=== PATIENT | male | born 1965 | race Caucasian/White ===

== ENCOUNTER 2023-08-18 12:37 | Outpatient (CLI) | payer MEDICAID | END 2023-08-18 12:38 | disposition critical access hospital (66) | LOC: EMS 12:37 | DX: R06.02 Shortness of breath (principal); R09.89 Other specified symptoms and signs involving the circulatory and respiratory systems; R00.0 Tachycardia, unspecified | CPT/HCPCS: A0425; A0429 ==

== ENCOUNTER 2023-08-18 12:53 | Emergency (ER) | payer MEDICAID, OTHER ==
[2023-08-18] MEDS ORDERED: SODIUM CHLORIDE 0.9% 1,000 ML IV STA (13:01)
[2023-08-18 13:24] LABS: BASOPHILS # (AUTO) 0.1 10^3/uL (0.0-0.1); BASOPHILS % (AUTO) 0.4 %; EOSINOPHILS # (AUTO) 0.1 10^3/uL (0.0-0.7); EOSINOPHILS % (AUTO) 0.4 %; HCT - HEMATOCRIT 48.7 % (42.0-52.0); LYMPHOCYTES # (AUTO) 1.6 10^3/uL (1.5-3.5); LYMPHOCYTES % (AUTO) 13.4 %; MEAN CORPUSCULAR HEMOGLOBIN 27.2 pg (27.0-31.0); MEAN CORPUSCULAR HGB CONC 32.9 g/dL (32.0-36.0); MEAN CORPUSCULAR VOLUME 82.8 fL (80.0-94.0); MEAN PLATELET VOLUME 9.3 fL (7.4-11.4); MONOCYTES # (AUTO) 0.6 10^3/uL (0.0-1.0); MONOCYTES % (AUTO) 4.7 %; NEUTROPHILS # (AUTO) 9.8 10^3/uL (1.5-6.6); NEUTROPHILS % (AUTO) 80.9 %; PLT - PLATELET COUNT 264 10^3/uL (130-450); RED BLOOD COUNT 5.88 10^6/uL (4.70-6.10); WHITE BLOOD COUNT 12.2 x10^3/uL (4.8-10.8)
[2023-08-18 13:44] LABS: ALBUMIN 4.1 g/dL (3.2-5.5); ALBUMIN/GLOBULIN RATIO 1.2 (1.0-2.2); ALKALINE PHOSPHATASE 78 IU/L (42-121); ALT ALANINE AMINOTRANSFERASE 22 IU/L (10-60); AST ASPARTATE AMINOTRANSFERASE 18 IU/L (10-42); BILIRUBIN,TOTAL 0.7 mg/dL (0.2-1.0); BUN - BLOOD UREA NITROGEN 19 mg/dL (6-20); CALCIUM 9.4 mg/dL (8.5-10.3); CARBON DIOXIDE - CO2 26 mmol/L (21-32); CHLORIDE 102 mmol/L (101-111); CREATININE 1.2 mg/dL (0.6-1.3); GFR - MDRD 62 (>89); GLUCOSE 153 mg/dL (74-104); POTASSIUM 4.2 mmol/L (3.5-4.5); SODIUM 138 mmol/L (135-145); TOTAL PROTEIN 7.5 g/dL (6.4-8.9)
[2023-08-18 13:46] LABS: LIPASE < 10 U/L (11-82)
--- NOTE | 2023-08-18 14:00 | XRAY Report ---
PROCEDURE: Chest 1 View X-Ray INDICATIONS: chest pain/dyspnea TECHNIQUE: One view of the chest was acquired. COMPARISON: None FINDINGS: Surgical changes and devices: None. Lungs and pleura: No pleural effusions or pneumothorax. Lungs are clear. Low lung volumes accentu ate pulmonary interstitium and heart size. Mediastinum: Mediastinal contours appear normal. Heart size is normal. Bones and chest wall: No suspicious bony lesions. Overlying soft tissues appear unremarkable. IMPRESSION: No acute cardiopulmonary findings Reviewed by: Gerald Barillas MD on 08/18/2023 12:59 PM AKDT Approved by: Gerald Barillas MD on 08/18/2023 12:59 PM AKDT Station ID: [id number]
[2023-08-18] MEDS ORDERED: HYDROmorphone 0.5 MG/0.5 ML SYRINGE IVP STA (14:10)
[2023-08-18 14:13] LABS: B. PARAPERTUSSIS- RESP PCR PAN NOT DETECTED; B. PERTUSSIS- RESP PCR PANEL NOT DETECTED; C. PNEUMONIAE- RESP PCR PANEL NOT DETECTED; CORONAVIRUS 229E-RESP PCR NOT DETECTED; CORONAVIRUS HKU1-RESP PCR NOT DETECTED; CORONAVIRUS NL63-RESP PCR NOT DETECTED; CORONAVIRUS OC43-RESP PCR NOT DETECTED; HUMAN METAPNEUMOVIRUS NOT DETECTED; INFLUENZA A- RESP PCR PANEL NOT DETECTED; INFLUENZA B - RESP PCR PANEL NOT DETECTED; M. PNEUMONIAE- RESP PCR PANEL NOT DETECTED; PARAINFLUENZA VIRUS 1 NOT DETECTED; PARAINFLUENZA VIRUS 2 NOT DETECTED; PARAINFLUENZA VIRUS 3 NOT DETECTED; PARAINFLUENZA VIRUS 4 NOT DETECTED; RHINOVIRUS/ENTEROVIRUS NOT DETECTED; RSV- RESP PCR PANEL NOT DETECTED; SARS-CoV-2 -RESP PCR PANEL NOT DETECTED
[2023-08-18] MEDS ORDERED: ASPIRIN CHEW 81 MG TABLET PO STA (16:45)
[2023-08-18] MEDS ORDERED: ONDANSETRON 4 MG/2 ML VIAL IVP STA (16:47)
[2023-08-18] MEDS ORDERED: NITROGLYCERIN 2% PASTE TOP STA (16:47)
[2023-08-18] MEDS ORDERED: METOPROLOL 5 MG/5 ML VIAL IVP STA (16:47)
[2023-08-18] MEDS ORDERED: HEPARIN 25000UNITS/500ML (D5W) 25,000 UNIT/500 ML BAG IV SCH (17:00)
[2023-08-18] MEDS ORDERED: HEPARIN 5,000 UNIT/ML VIAL IVP ONE (17:00)
--- NOTE | 2023-08-18 17:04 | ED Physician Documentation ---
PD HPI DYSPNEA - Stated complaint Stated Complaint: SOA - Chief complaint Chief Complaint: Resp - History obtained from History obtained from: Patient, EMS - Additional information Additional information: Patient comes to the emergency department chief complaint of dyspnea and an intermittent "ball" sensation in the middle of his chest. He states that he has been having episodes of shortness of breath on and off for the last 2 weeks. He states he felt fairly fine before that was not having any chest symptoms at all. He noticed that when he walked uphill after getting the mail, he had to stop in the middle of walking up to catch his breath. began to notice that he states that the symptoms would last for a few minutes and then resolved. He would feel fine in between. The patient states that he began to also notice a sensation that there was something inside of his chest taking up space. He denies any actual chest pain at those times. The patient states has had a little bit of a cough. He states that the symptoms have gotten somewhat worse to the point that today, he was worried enough to call EMS. He states that he has not been to a doctor in 40 years and is not aware of any medical problems. He is not a smoker. He does not take any medications. The patient states that he has not had any recent swelling in his legs, though he used to intermittently noticed that his right leg would swell. No history of any pulmonary or cardiac diagnoses. No other complaints at this time. Medics report that when they picked the patient up, his oxygen saturation was 94 to 96% on room air. He has been hemodynamically stable en route. PD PAST MEDICAL HISTORY - Past Medical History Past Medical History: No Cardiovascular: None Respiratory: None Neuro: None Endocrine/Autoimmune: None GI: None : None HEENT: None Psych: None Musculoskeletal: None Derm: None - Past Surgical History Past Surgical History: No - Present Medications Home Medications: Ambulatory Orders Medication Instructions Recorded Confirmed Aspirin EC [Ecotrin] 325 mg PO DAILY 08/18/23 08/18/23 - Allergies Allergies/Adverse Reactions: Allergies Allergy/AdvReac Type Severity Reaction Status Date / Time No Known Drug Allergies Allergy Verified 08/18/23 13:22 - Social History Does the pt smoke?: No Smoking Status: Never smoker Does the pt drink ETOH?: No Does the pt have substance abuse?: No - Immunizations Immunizations are current?: No Immunizations: Other immun not current PD ED PE NORMAL - Vitals Vital signs reviewed: Yes - General General: Alert and oriented X 3, No acute distress, Well developed/nourished - HEENT HEENT: Atraumatic, PERRL, EOMI, Moist mucous membranes - Neck Neck: Supple, no meningeal sign - Cardiac Cardiac: RRR, No murmur, Strong equal pulses - Respiratory Respiratory: No respiratory distress, Clear bilaterally - Abdomen Abdomen: Soft, Non tender, Non distended - Derm Derm: Normal color, Warm and dry, No rash - Extremities Extremities: No deformity, No edema, No calf tenderness / cord - Neuro Neuro: Alert and oriented X 3 - Psych Psych: Normal mood, Normal affect Results - Vitals Vitals: Oxygen O2 Source Nasal cannula Oxygen Flow Rate 10 - EKG (time done) 1421 EKG releavant findings:: EKG personally interpreted by author of this note. Relevant findings are: Rate: Rate (enter#) (90) Rhythm: NSR [place]: Normal Intervals: Normal AL QRS: Normal Ischemia: Normal ST segments Compare to prior EKG: Old EKG unavailable Computer interpretation: Agree with computer 1536 EKG releavant findings:: EKG personally interpreted by author of this note. Relevant findings are: Rate: Rate (enter#) (81) Rhythm: NSR [place]: RAD Intervals: Normal AL QRS: Normal Ischemia: Normal ST segments, Non specific changes Compare to prior EKG: Unchanged from prior EKG Computer interpretation: Agree with computer - Labs Labs: Laboratory Tests 08/18/23 08/18/23 08/18/23 13:15 13:20 13:20 WBC 12.2 H RBC 5.88 Hgb 16.0 Hct 48.7 MCV 82.8 MCH 27.2 MCHC 32.9 RDW 13.0 Plt Count 264 MPV 9.3 Neut # (Auto) 9.8 H Lymph # (Auto) 1.6 [place] # (Auto) 0.6 Eos # (Auto) 0.1 Baso # (Auto) 0.1 Absolute Nucleated RBC 0.00 Nucleated RBC % 0.0 Sodium 138 Potassium 4.2 Chloride 102 Carbon Dioxide 26 Anion Gap 10.0 BUN 19 Creatinine 1.2 Estimated GFR (MDRD) 62 L Glucose 153 H POC Whole Bld Glucose Lactic Acid Calcium 9.4 Total Bilirubin 0.7 AST 18 ALT 22 Alkaline Phosphatase 78 Troponin I High Sens B-Natriuretic Peptide Total Protein 7.5 Albumin 4.1 Globulin 3.4 Albumin/Globulin Ratio 1.2 Lipase < 10 L Nasal Adenovirus (PCR) NOT DETECTED Nasal B. parapertussis DNA (PCR) NOT DETECTED Nasal Coronavir 229E PCR NOT DETECTED Nasal Coronavir HKU1 PCR NOT DETECTED Nasal Coronavir NL63 PCR NOT DETECTED Nasal Coronavir OC43 PCR NOT DETECTED Nasal Enterovir/Rhinovir PCR NOT DETECTED Nasal Influenza B PCR NOT DETECTED Nasal Influenza A PCR NOT DETECTED Nasal Parainfluen 1 PCR NOT DETECTED Nasal Parainfluen 2 PCR NOT DETECTED Nasal Parainfluen 3 PCR NOT DETECTED Nasal Parainfluen 4 PCR NOT DETECTED Nasal RSV (PCR) NOT DETECTED Nasal B.pertussis DNA PCR NOT DETECTED Nasal C.pneumoniae (PCR) NOT DETECTED Dagoberto Human Metapneumo PCR NOT DETECTED Nasal M.pneumoniae (PCR) NOT DETECTED Nasal SARS-CoV-2 (PCR) NOT DETECTED 08/18/23 08/18/23 08/18/23 13:20 15:36 15:50 WBC RBC Hgb Hct MCV MCH MCHC RDW Plt Count MPV Neut # (Auto) Lymph # (Auto) [place] # (Auto) Eos # (Auto) Baso # (Auto) Absolute Nucleated RBC Nucleated RBC % Sodium Potassium Chloride Carbon Dioxide Anion Gap BUN Creatinine Estimated GFR (MDRD) Glucose POC Whole Bld Glucose 114 H Lactic Acid Calcium Total Bilirubin AST ALT Alkaline Phosphatase Troponin I High Sens 227.2 H* B-Natriuretic Peptide 615 H Total Protein Albumin Globulin Albumin/Globulin Ratio Lipase Nasal Adenovirus (PCR) Nasal B. parapertussis DNA (PCR) Nasal Coronavir 229E PCR Nasal Coronavir HKU1 PCR Nasal Coronavir NL63 PCR Nasal Coronavir OC43 PCR Nasal Enterovir/Rhinovir PCR Nasal Influenza B PCR Nasal Influenza A PCR Nasal Parainfluen 1 PCR Nasal Parainfluen 2 PCR Nasal Parainfluen 3 PCR Nasal Parainfluen 4 PCR Nasal RSV (PCR) Nasal B.pertussis DNA PCR Nasal C.pneumoniae (PCR) Dagoberto Human Metapneumo PCR Nasal M.pneumoniae (PCR) Nasal SARS-CoV-2 (PCR) 08/18/23 18:58 WBC RBC Hgb Hct MCV MCH MCHC RDW Plt Count MPV Neut # (Auto) Lymph # (Auto) [place] # (Auto) Eos # (Auto) Baso # (Auto) Absolute Nucleated RBC Nucleated RBC % Sodium Potassium Chloride Carbon Dioxide Anion Gap BUN Creatinine Estimated GFR (MDRD) Glucose POC Whole Bld Glucose Lactic Acid 2.8 H Calcium Total Bilirubin AST ALT Alkaline Phosphatase Troponin I High Sens B-Natriuretic Peptide Total Protein Albumin Globulin Albumin/Globulin Ratio Lipase Nasal Adenovirus (PCR) Nasal B. parapertussis DNA (PCR) Nasal Coronavir 229E PCR Nasal Coronavir HKU1 PCR Nasal Coronavir NL63 PCR Nasal Coronavir OC43 PCR Nasal Enterovir/Rhinovir PCR Nasal Influenza B PCR Nasal Influenza A PCR Nasal Parainfluen 1 PCR Nasal Parainfluen 2 PCR Nasal Parainfluen 3 PCR Nasal Parainfluen 4 PCR Nasal RSV (PCR) Nasal B.pertussis DNA PCR Nasal C.pneumoniae (PCR) Dagoberto Human Metapneumo PCR Nasal M.pneumoniae (PCR) Nasal SARS-CoV-2 (PCR) - Rads (name of study) chest XR Relevant Findings:: Final report received, See rad report (nad) CTA chest Relevant Findings:: Final report received, See rad report (Saddle pulmonary embolism with right heart strain.) PD Medical Decision Making - ED course Complexity details: reviewed results, re-evaluated patient, considered differential, d/w patient, d/w oracle consultant ED course: The patient was fairly stable upon arrival in the emergency department. He was mildly tachycardic but responded well to IV fluids With a normal heart rate demonstrated after 1 L bolus of point in normal saline. He did not have any acute complaints of chest pain or shortness of breath initially upon arrival. He was worked up with labs, EKG and chest x-ray initially, which were overall fairly reassuring. His blood pressures were normal throughout his initial stay in the emergency department. He did complain of intermittent episodes of chest discomfort while in the bed but was without dyspnea. The patient got up to use the bathroom was able to ambulate there but began to feel short of breath. Upon arrival back to his room he suddenly became ashen, heavily diaphoretic, and had a syncopal episode. Nursing staff was able to catch him and laid him gently on the floor until he recovered consciousness seconds later. He did complain of chest pain upon awakening. The patient continued to be diaphoretic and with very labored respirations for approximately 20 minutes afterward. He was placed on a nonrebreather mask which did help his symptoms. The patient continued to complain of chest pain at that time, but he was found to be hypotensive with a blood pressure in the 90s systolic, so nitroglycerin and metoprolol could not be immediately administered. He was nauseated and did not want to try taking aspirin. Repeat EKG was unchanged from the initial EKG, which had showed inverted T waves in leads III, aVF, and V2 through V4. His high-sensitivity troponin immediately after the event came back at 227. BNP was 615. Kidney functions were normal. Medications were ordered initially as her working diagnosis of non-ST elevation MA and once the patient was stable, he was able to receive nitroglycerin paste, Lopressor, and aspirin. Heparin drip was also ordered. He was sent for CT angiogram of the chest which showed a large saddle pulmonary embolism with evidence of right heart strain. The patient did recover ultimately from his episode and was found to be feeling much more comfortable. At that time he was able to be downgraded from the nonrebreather mask to 4 L of oxygen per nasal cannula. After multiple phone calls to various facilities which were unable to take the patient, the patient was graciously excepted by Dr. Clark of pulmonology/critical care at [facility] in [place], and consultation with stable hand Dr. Paredes. The patient was stable at the time of this dictation and agreeable to transfer. - Critical Care Time(min): 45 Comments: Critical care time was necessary, due to high probability of imminent decline and , secondary to cardiovascular and respiratory instability, secondary to a saddle pulmonary embolism with right heart strain. Time Includes: Direct patient care, Review records, Reassess patient, Document care, Coordinate care, Medical consult, See progress note Data interpretation: Labs, Pulse ox, CXR, Prior EKG, Cardiac output, See progress note Departure - Departure Disposition: 02 Transfer Acute Care Hosp Clinical Impression: Acute saddle pulmonary embolism Qualifiers: Acute cor pulmonale presence: with acute cor pulmonale Qualified Code(s): I26.0 2 - Saddle embolus of pulmonary artery with acute cor pulmonale Condition: Critical Forms: PCP List Discharge Date/Time: 08/18/23 19:15
[2023-08-18] MEDS ORDERED: iohexoL-300 100 ML VIAL IVP ONE (17:16)
--- NOTE | 2023-08-18 17:25 | CT Report ---
PROCEDURE: CT abdomen and pelvis with contrast INDICATIONS: hypotension, mid-chest/abd pain TECHNIQUE: Helical axial CT of the abdomen and pelvis was obtained after intravenous contrast adminis tration and reformatted in multiple planes. Radiation dose reduction was achieved using automated exp osure control or adjustment of mA and/or kV according to patient size. COMPARISON: None FINDINGS: Liver: Hepatic parenchyma is diffusely decreased in attenuation without focal mass lesion. Biliary system: No calcified cholelithiasis or pericholecystic inflammation. No evidence of bile du ct dilatation. Pancreas: Unremarkable without mass or inflammation evident. Spleen: Normal in size and density. Adrenals: Normal morphology and density. Reproductive system: Unremarkable as visualized. Urinary system: Normal renal size and attenuation. No renal calculi, hydronephrosis, or solid mass p resent. Urinary bladder unremarkable. Gastrointestinal system: The bowel appears unremarkable with no evidence of bowel obstruction or inf lammation. The stomach appears unremarkable. Appendix: Normal appendix notified Peritoneal spaces: No mesenteric or retroperitoneal adenopathy. No free air. No free fluid. Vasculature: The IVC, aorta and iliac vasculature are unremarkable. Abdominal wall: Bilateral inguinal hernias containing fat without bowel involvement Musculoskeletal: Normal bone mineralization. No acute fractures. IMPRESSION: No acute CT findings in the abdomen or pelvis. Hepatic fatty infiltration without focal mass lesion Reviewed by: Gerald Barillas MD on 08/18/2023 4:23 PM PRINCESS Approved by: Gerald Barillas MD on 08/18/2023 4:23 PM AKKIEL Station ID: [id number]
--- NOTE | 2023-08-18 17:30 | CT Report ---
PROCEDURE: CT chest angiogram with contrast INDICATIONS: hypotension/dyspnea, mid-chest pain TECHNIQUE: Helical axial CT of the chest was obtained during the angiographic phase of an intravenou s contrast injection. Images were reformatted in multiple planes, and a MIP series was also utilized . Radiation dose reduction was achieved utilizing automated exposure control or adjustment of mA and/ or kV according to patient size. COMPARISON: None FINDINGS: Vasculature: Large saddle pulmonary embolism spans the main pulmonary arteries extends into the lobar and segmental arteries. Additionally, there is straightening and reversal of the intraventricular se ptum reflecting right heart strain Lungs and pleura: Minimal groundglass density noted in both lung apices Mediastinum: Heart size is normal. No pericardial effusion. No large vessel abnormality. No mediastin al adenopathy by size criteria. Chest wall and lower neck: Thyroid is unremarkable. No axillary or supraclavicular adenopathy by size . Bones: No aggressive osseous abnormality. Upper Abdomen: Unremarkable. IMPRESSION: Large saddle pulmonary embolism involving both main pulmonary arteries as well as bilateral lobar and segmental pulmonary arteries. Straightening and curvature reversal of the intraventricular septum re flects heart strain Mild bilateral upper lobe groundglass density reflects early pulmonary edema Note: Critical results were discussed with the patient's ER physician at 08/18/2023 4:25:29 PM AK briana ia. Reviewed by: Gerald Barillas MD on 08/18/2023 4:28 PM PRINCESS Approved by: Gerald Barillas MD on 08/18/2023 4:28 PM AKKIEL Station ID: [id number]
[2023-08-18 19:01] VITALS: BP 109/83; O2SAT 96
== END 2023-08-18 19:15 | disposition short-term general hospital (02) ==
LOC: ED 12:53
DX: I26.02 Saddle embolus of pulmonary artery with acute cor pulmonale (principal); Z20.822 Contact with and (suspected) exposure to COVID-19; Z79.82 Long term (current) use of aspirin
CPT/HCPCS: 36415; 71045; 71275; 74177; 80053; 83605; 83690; 83880; 84484; 85025; 87633; 93005; 96374; 96375; 99285; 99291; A9270; J1170; Q9967; 85730

== ENCOUNTER 2023-09-06 11:20 | Outpatient (CLI) | payer MEDICAID ==
[2023-09-06 17:45] LABS: HCT - HEMATOCRIT 51.8 % (42.0-52.0); HGB - HEMOGLOBIN 16.4 g/dL (14.0-18.0); MEAN CORPUSCULAR HEMOGLOBIN 26.7 pg (27.0-31.0); MEAN CORPUSCULAR HGB CONC 31.7 g/dL (32.0-36.0); MEAN CORPUSCULAR VOLUME 84.4 fL (80.0-94.0); RED BLOOD COUNT 6.14 10^6/uL (4.70-6.10); RED CELL DISTRIBUTION WIDTH 13.2 % (12.0-15.0)
[2023-09-06 18:12] LABS: FECAL OCCULT BLOOD (FIT) POSITIVE (NEGATIVE)
[2023-09-06 18:18] LABS: ALBUMIN 4.3 g/dL (3.2-5.5); CHOL/HDL RATIO 5.8 (<5.0); CHOLESTEROL 298 mg/dL; HDL CHOLESTEROL 51 mg/dL; LDL CHOLESTEROL,CALCULATED 189 mg/dL; LDL/HDL RATIO 3.7 (<3.6); THYROID STIMULATING HORMONE 1.19 uIU/mL (0.34-5.60); TRIGLYCERIDES 289 mg/dL (48-352); VLDL CHOLESTEROL 58 mg/dL
[2023-09-06 21:07] LABS: ALBUMIN/GLOBULIN RATIO 1.3 (1.0-2.2); ALKALINE PHOSPHATASE 85 IU/L (42-121); ALT ALANINE AMINOTRANSFERASE 29 IU/L (10-60); AST ASPARTATE AMINOTRANSFERASE 19 IU/L (10-42); BILIRUBIN,TOTAL 0.7 mg/dL (0.2-1.0); BUN - BLOOD UREA NITROGEN 15 mg/dL (6-20); CALCIUM 9.7 mg/dL (8.5-10.3); CARBON DIOXIDE - CO2 25 mmol/L (21-32); CHLORIDE 103 mmol/L (101-111); CREATININE 0.9 mg/dL (0.6-1.3); GFR - MDRD 86 (>89); GLUCOSE 89 mg/dL (74-104); POTASSIUM 4.5 mmol/L (3.5-4.5); SODIUM 136 mmol/L (135-145); TOTAL PROTEIN 7.5 g/dL (6.4-8.9)
[2023-09-06 21:22] LABS: ESTIMATED AVERAGE GLUCOSE 128 mg/dL (70-100); HEMOGLOBIN A1c% 6.1 % (4.27-6.07)
== END 2023-09-06 11:21 | disposition home or self-care (01) ==
LOC: LAB.N 11:20
PROVIDERS: ATTEND Family Medicine
DX: I82.402 Acute embolism and thrombosis of unspecified deep veins of left lower extremity (principal); E66.9 Obesity, unspecified; I26.09 Other pulmonary embolism with acute cor pulmonale; Z12.11 Encounter for screening for malignant neoplasm of colon
CPT/HCPCS: 36415; 80053; 80061; 82274; 83036; 83721; 84443; 85027; 85610

== ENCOUNTER 2024-04-14 13:05 | Outpatient (CLI) | payer MEDICAID ==
--- NOTE | 2024-04-14 18:43 | SLEEP CARE CONSULTATION ---
Information from patient questionnaire entered by Suresh Patel. I have reviewed and concur with the information entered by Suresh Patel. This document represents the service I personally performed and the decisions made by me, Mira Zuluaga ARNP. History of Present Illness Service Date and Time: 04/14/2024 1305 Reason for Visit: New patient Chief Complaint: reports: Snoring, Observed pauses in breathing Usual bedtime: 2129 Snores at night: Yes Observed to quit breathing while asleep: Yes Sleeps alone due to snoring: No Number of times waking at night: 4-5 Reasons for waking at night: reports: Choking, Gasping for air (running out of air), Pain, Bathroom Toss, Turn, or Twitch while sleeping: Yes Recalls having dreams: No Usually gets out of bed at: 8116-0354 Feels refreshed in the morning: No Morning headache: No Sleepy or fatigued during the day: Yes Ever fallen asleep while driving: Yes (no accidents) Takes day naps: No (fall asleep watching TV) Dreams during day naps: No Prior sleep studies: No Additional HPI information: I had the pleasure of seeing RAKAN RAI today regarding the possibility of him having a sleep disorder. His current complaints are snoring and observed pauses in breathing. He says he was in the hospital with a pulmonary embolism on July 2023. The nurse asked him if he had sleep apnea. He says that when he followed up with a registered phlebotomist part time, they recommended he have a sleep study. He say s he has been told that he snored and has had times when he woke up feeling like he was "running out of air". He says he uses a chinstrap to reduce snoring and sleeps on his sides. He says he does not take his Metoprolol if he has to go somewhere because it makes him feel "stupid". 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 Patient is Single and lives in . Have you smoked in the past 12 months: No Cigarettes per day (20/pack): 20 Years of smokin Quit date: 2000 Smoking Pack Years: 21.0 Alcohol use: No Caffeine use: No Family History Family history of sleep disordered breathing: No Family Hx Sleep Apnea: Father: Snoring, Sibling: Snoring Allergies and Home Medications Known drug allergies: No Drug allergies reviewed: Yes Home medication list reviewed: Yes (as listed) Allergy and home medication list: Allergies No Known Drug Allergies Allergy (Verified 04/09/24 08:53) Medications: Metoprolol Warfarin Simvastatin Review of Systems Weight gain over past 5 years: 20 Cardiovascular: reports: palpitations, chest pain, irregular heart rate or pulse Respiratory: reports: shortness of breath Gastrointestinal: reports: heartburn, difficulty swallowing Urinary: reports: frequency Neurological: reports: gait or balance problems Psychiatric: denies: anxiety, depression Ear/Nose/Throat: denies: tonsillectomy Immunologic: reports: other (BEE STINGS) Physical Exam Vital signs obtained and entered by: SURESH Brock MA Blood Pressure: 171/138 (did not take BP meds) Cuff size: regular Heart Rate: 70 O2 Saturation: 98 Height: 5 ft 8 in Weight: 249 lb 12.8 oz Body Mass Index: 38.0 BMI Classification: Obese Neck circumference: 18.25 Mouth and throat: narrow oropharynx Soft palate: long Hard palate: normal Uvula: normal Uvula visualization: 25% Mallampati Class III Tongue: normal in size Tonsils: 3+/kissing Neck: normal w/o lymphadenopathy or thyromegaly Heart: regular rate and rhythm Lungs: clear bilaterally Impression and Plan 1. Suspected Obstructive Sleep Apnea-Hypopnea Syndrome, as suggested by a history of loud and irregular snoring, observed cessation of breath while asleep, gasping or choking in sleep, frequent awakening during the night, unrefreshed sleep and cognitive impairment. Narrow oropharynx and obesity are common predisposing factors for obstructive sleep apnea-hypopnea syndrome. I recommend proceeding to polysomnography to confirm the diagnosis and to assess severity. If the patient has significant sleep disordered breathing, a manual CPAP titration study will also be performed to find the optimal treatment pressure. I informed the patient of what the sleep studies involve and after some discussion, obtained agreement to proceed. The pathophysiology of obstructive sleep apnea-hypopnea syndrome was discussed with the patient and h ealth risks of cardiovascular and cerebrovascular disease if not treated. Risks of drowsy driving discussed in detail and patient advised to avoid long distance driving and to jawbone puller at the first sign of drowsiness. Patient agreed to plan. * Schedule polysomnography * Avoid long distance driving or driving when feeling sleepy. * Avoid alcohol, sedative and muscle relaxant around bedtime. * Attempt to lose weight. * Review instructions provided by trained office staff on how to prepare for the sleep study. * Return for follow-up after sleep study completed. Counseling Topics: Weight loss health impact Plan: PSG/HST and follow up Visit Type: In Office Time Spent with Patient (minutes): 32 Provider Statement: I spent 100% of the Face to Face Visit with the patient with greater than 50% spent counseling the patient and coordination of care.
[2024-04-14 18:44] VITALS: BP 171/138; O2SAT 98
== END 2024-04-14 13:06 | disposition home or self-care (01) ==
LOC: SC 13:05
PROVIDERS: ATTEND Nurse Practitioner Family
DX: R06.83 Snoring (principal); R06.81 Apnea, not elsewhere classified; E66.9 Obesity, unspecified; Z68.38 Body mass index [BMI] 38.0-38.9, adult; G47.8 Other sleep disorders; R41.89 Other symptoms and signs involving cognitive functions and awareness; I10 Essential (primary) hypertension; Z87.891 Personal history of nicotine dependence
CPT/HCPCS: 99203; 99212

== ENCOUNTER 2024-05-07 19:18 | Outpatient (CLI) | payer MEDICAID | END 2024-05-07 19:19 | disposition home or self-care (01) | LOC: SC 19:18 | PROVIDERS: ATTEND Nurse Practitioner Family | DX: G47.33 Obstructive sleep apnea (adult) (pediatric) (principal); E66.9 Obesity, unspecified; Z68.37 Body mass index [BMI] 37.0-37.9, adult | CPT/HCPCS: 95810 ==

== ENCOUNTER 2024-05-19 13:53 | Outpatient (CLI) | payer MEDICAID ==
--- NOTE | 2024-05-19 14:41 | Sleep Patient Instructions ---
Sleep Center Visit Summary - Patient Visit Information Reason for Visit: Sleep study follow-up - Patient Instructions Additional Instructions: You are being started on CPAP therapy. You will be completing a titration sleep study in our sleep lab where you will be sleeping with the CPAP machine on and we will be adjusting your pressures to find your optimal pressure settings. Once we have your results back, we will call you and schedule a follow up to go over the results, you may contact us with any questions or issues as needed. - Clinic Information Contact: [facility] [address] [place] [phone] [email or web address] T: [phone]
--- NOTE | 2024-05-19 14:44 | SLEEP CARE CONSULTATION ---
Information from patient questionnaire entered by Ana Lilia Patel. I have reviewed and concur with the information entered by Ana Lilia Patel. This document represents the service I personally performed and the decisions made by , Miar Zuluaga ARNP. History of Present Illness Service Date and Time: 05/19/2024 1353 Initial [place] Sleepiness Scale score: 6 (04/09/24) Current [place] Sleepiness Scale score: 12 Additional HPI information: RAKAN RAI returns for follow up and results of the recently performed polysomnography. The sleep study done on 05/07/2024 showed very severe obstructive sleep apnea with an average AHI of 83 and franki oxygen saturation of 72%. I explained the pathophysiology behind obstructive sleep apnea. We then spent quite a bit of time discussing different treatment options. For mild obstructive sleep apnea, surgery and oral appliance are alternatives to nasal CPAP therapy but in moderate or severe cases, nasal CPAP is the most effective and reliable treatment. I reviewed the impact of weight changes on sleep apnea and strongly recommended losing weight. After some discussion, the patient opted to go with the nasal CPAP therapy. A manual titration study will be ordered to find optimal pressure. Patient does not drink alcohol. Patient was cautioned about risks of drowsy driving until sleepiness symptoms resolve. Patient denies drowsy driving. Sleep Study - Results Type of Sleep Study: Polysomnography (COMPLETED 05/07/24) Prior sleep studies: No Polysomnography/Home Sleep Study results: IMPRESSION: The quality of the study is good. The patient had reduced sleep efficiency due to three prolonged awakenings during the night. The sleep architecture was abnormal for sleep fragmentation and reduced amount of time spent in slow wave sleep (N3). Respiratory monitoring showed very severe obstructive sleep apnea-hypopnea (AHI = 83.0) associated with frequent arousals, oxyhemoglobin desaturation and moderate hypoxia (franki oxygen saturation of 72%). The respiratory events occurred slightly more frequently during supine sleep (supine AHI = 100.3; non-supine = 67.31). Snore was loud in intensity. There was no significant periodic leg movement of sleep. Cardiac rhythm was normal sinus rhythm without significant arrhythmia. No abnormal behavior (parasomnia) observed during the night. Allergies and Home Medications Known drug allergies: No Drug allergies reviewed: Yes Home medication list reviewed: Yes (no changes) Allergy and home medication list: Allergies No Known Drug Allergies Allergy (Verified 05/18/24 11:36) Review of Systems Review of systems same as previous: Yes (no changes) Physical Exam Vital signs obtained and entered by: Mira Ramirez NP Blood Pressure: 127/85 Cuff size: long (right arm) Heart Rate: 85 O2 Saturation: 95 Height: 5 ft 8 in Weight: 254 lb 12.8 oz Body Mass Index: 38.7 BMI Classification: Obese Impression and Plan 1. Obstructive Sleep Apnea-Hypopnea Syndrome, very severe, with lowest oxygen saturation of 72%. Obviously this is the cause of the patients symptoms of unrefreshed sleep, and excessive daytime sleepiness. Positive pressure therapy could benefit hypertension and pre-diabetes. As mentioned above, the patient will be started on nasal autoCPAP therapy. A manual titration study will be completed to find optimal treatment pressure. Compliance guidelines also reviewed. Because the apnea is more severe supine, I instructed to avoid sleeping supine using pillow positioning until able to start CPAP use. 2. Hypoxemia, moderate, with a franki oxygen saturation of 72% and 34.7 minutes spent under 90%. The baseline oxygen saturation was normal with an average oxy gen saturation of 92%. 3. Obesity, unspecified. Currently patients BMI is 38.7. Obesity increases the risk of apnea, CPAP pressure requirements and overall health risks especially cardiovascular and diabetes. Thus patient is advised to lose weight. * Titration study * Attempt to lose weight. * Avoid supine sleep until using CPAP. * Return after titration study for results and to initiate PAP therapy. Counseling Topics: Sleeping position, Weight loss health impact Plan: Titration study and followup to initiate therapy Visit Type: In Office Time Spent with Patient (minutes): 20 Provider Statement: I spent 100% of the Face to Face Visit with the patient with greater than 50% spent counseling the patient and coordination of care.
[2024-05-19 14:54] VITALS: BP 127/85; O2SAT 95
== END 2024-05-19 13:54 | disposition home or self-care (01) ==
LOC: SC 13:53
PROVIDERS: ATTEND Nurse Practitioner Family
DX: G47.33 Obstructive sleep apnea (adult) (pediatric) (principal); R09.02 Hypoxemia; E66.9 Obesity, unspecified; Z68.38 Body mass index [BMI] 38.0-38.9, adult
CPT/HCPCS: 99212; 99213

== ENCOUNTER 2024-07-08 19:35 | Outpatient (CLI) | payer MEDICAID | END 2024-07-08 19:36 | disposition home or self-care (01) | LOC: SC 19:35 | PROVIDERS: ATTEND Nurse Practitioner Family | DX: G47.33 Obstructive sleep apnea (adult) (pediatric) (principal); I10 Essential (primary) hypertension | CPT/HCPCS: 95811 ==

== ENCOUNTER 2024-07-21 09:44 | Outpatient (CLI) | payer MEDICAID ==
--- NOTE | 2024-07-21 10:23 | Sleep Patient Instructions ---
Sleep Center Visit Summary - Patient Visit Information Reason for Visit: Titration study follow-up - Patient Instructions Instructions Attached: CPAP Additional Instructions: You are here for follow-up of your titration study to be set up on CPAP therapy. You are being started on CPAP therapy with pressure setting at 14-16 cmH2O. You will need to call the sleep care office to set up your follow up once you have your CPAP machine to check compliance and response to therapy at that time. You may call the office with any concerns about pressure feeling too low or too much for adjustment, if needed. You should contact DME supplier for any questions or concerns about mask or equipment. Please call office to schedule a follow up appointment in the sleep care office one month after obtaining new device. - Clinic Information Contact: [facility] [address] [place] [address] [email or web address] T: [phone]
--- NOTE | 2024-07-21 10:25 | SLEEP CARE CONSULTATION ---
Information from patient questionnaire entered by Eleuterio Bearden. I have reviewed and concur with the information entered by Eleuterio Bearden. This document represents the service I personally performed and the decisions made by , Mira Zuluaga ARNP. History of Present Illness Service Date and Time: 07/21/2024 0944 Initial [place] Sleepiness Scale score: 6 (04/09/24) Current [place] Sleepiness Scale score: 13 (07/21/24) Additional HPI information: RAKAN RAI returns for follow up of a manual CPAP titration study performed on 07/08/24. Previous study done on 05/07/24 showed very severe obstructive sleep apnea with AHI 83. The patient was informed of the following polysomnography findings: CPAP was initiated at 6 cmH2O and titrated up to CPAP at 15 cmH2O. CPAP at 15 cmH2O appeared to be optimal (AHI of 0 per hour on the pressure). Oxygen saturation was minimally low. Lower CPAP settings allowed more frequent residual respiratory events. The patient appeared to have tolerated positive airway pressure therapy fairly well. I explained how CPAP machine works and what to expect when using the machine. Using CPAP every night in order to get used to it was emphasized. Patient advised to put CPAP mask on before getting into bed so as not to fall asleep without CPAP. To assist acclimation to CPAP use, it could also be used for a short time during day while reading or watching TV. The patient was instructed to call the CPAP supplier to discuss any mechanical problem that may occur. If the mask given is uncomfortable or is difficult to keep on through the night even with adjustment, contact the CPAP supplier as many will replace with another mask style if notified before 30 days. If snoring or perceives is not getting enough air or too much air from the machine, notify this office. Patient does not drink alcohol. Patient was cautioned about risks of drowsy driving until sleepiness symptoms resolve. Patient denies drowsy driving. Sleep Study - Results Type of Sleep Study: Polysomnography (COMPLETED 05/07/24) Prior sleep studies: No Polysomnography/Home Sleep Study results: IMPRESSION: The quality of the study is fair due to extensive loss of EKG signal. CPAP was initiated at 6 cmH2O and titrated up to CPAP at 15 cmH2O. CPAP at 15 cmH2O appeared to be optimal (AHI of 0 per hour on the pressure). However, there was no supine or REM sleep on the pressure. Oxygen saturation was minimally low. Lower CPAP settings allowed more frequent residual respiratory events. The patient appeared to have tolerated positive airway pressure therapy fairly well. The patients sleep efficiency was reduced due to two prolonged awakenings during the night. The sleep architecture was otherwise normal. There was no significant periodic leg movement of sleep. The available cardiac rhythm was normal sinus rhythm without significant arrhythmia. No abnormal behavior (parasomnia) observed during the night. Allergies and Home Medications Known drug allergies: No Drug allergies reviewed: Yes Home medication list reviewed: Yes (no changes) Allergy and home medication list: Allergies No Known Drug Allergies Allergy (Verified 07/21/24 10:13) Home Medications Metoprolol Tartrate [Lopressor] 25 mg PO DAILY 11/12/23 [History] Warfarin [Coumadin] 2.5 mg PO UD 11/12/23 [History] Simvastatin [Zocor] See Rx Instructions .ROUTE .COMPLEX 04/09/24 [History] Review of Systems Review of systems same as previous: Yes (no changes) Physical Exam Vital signs obtained and entered by: Mira Ramirez NP Blood Pressure: 153/97 (has not taken BP meds yet today) Cuff size: long (right) Heart Rate: 81 O2 Saturation: 97 Height: 5 ft 8 in Weight: 256 lb 3.2 oz Body Mass Index: 38.9 BMI Classification: Obese Impression and Plan 1. Obstructive Sleep Apnea-Hypopnea Syndrome, very severe. He returns to the off ice after titration study to review results and initiate CPAP therapy. Positive pressure therapy could benefit hypertension and pre-diabetes. He appeared to tolerate CPAP pressure comfortably during the sleep study. As mentioned above, the patient will be started on nasal autoCPAP therapy with pressure set at 14-16 cmH2O. Compliance guidelines also reviewed. A copy of compliance guidelines will be given for reference at check out. 2. Obesity, unspecified. Currently patients BMI is 38.9. Obesity increases the risk of apnea, CPAP pressure requirements and overall health risks especially cardiovascular and diabetes. Thus patient is advised to lose weight. * Nasal auto CPAP therapy, pressure at 14-16 cm H2O. * Attempt to lose weight. * Avoid supine sleep until using CPAP. * The patient is again cautioned about driving until sleepiness completely resolves. * Return one month after CPAP obtained. I will assess response to therapy and compliance at that time. Counseling Topics: Weight loss health impact Prescriptions: Auto CPAP Follow up with Sleep Care in: other (compliance follow up) Visit Type: In Office Time Spent with Patient (minutes): 24 Provider Statement: I spent 100% of the Face to Face Visit with the patient with greater than 50% spent counseling the patient and coordination of care.
[2024-07-21 10:31] VITALS: BP 153/97; O2SAT 97
== END 2024-07-21 09:45 | disposition home or self-care (01) ==
LOC: SC 09:44
PROVIDERS: ATTEND Nurse Practitioner Family
DX: G47.33 Obstructive sleep apnea (adult) (pediatric) (principal); E66.9 Obesity, unspecified; Z68.38 Body mass index [BMI] 38.0-38.9, adult
CPT/HCPCS: 99212; 99213